=== PATIENT | female | born 1955 | race Two or more races ===

== ENCOUNTER 2024-07-12 20:47 | Emergency (ER) | payer MEDICARE, BC, SELFPAY ==
[2024-07-12 20:55] VITALS: BP 149/77; PULSE 72; RESP 17; TEMP 36.7; O2SAT 98
[2024-07-12] MEDS: DIPHTH,PERTUSS(ACELL),TET VAC 0.5 ML SYR- ADULT IMi (21:37)
--- NOTE | 2024-07-13 04:11 | EDNOTE_ITS ---
ED Wound/Laceration-RME/HPI General Chief Complaint: Wound/Laceration Stated Complaint: LAC TO HEAD Time Seen by Provider: 07/12/24 21:02 Arrival date/time: 07/12/24 20:47 69F with history of HLD presents to ED with head pain and scalp lac after something fell on her head. Patient has not had a tetanus shot in the past 5 years. Limitations: no limitations Related Data Home Medications ?Medication ?Instructions ?Recorded ?Confirmed No Known Home Medications 03/16/1802/19 Allergies Allergy/AdvReac Type Severity Reaction Status Date / Time No Known Allergies Allergy Verified 03/16/18 22:23 Review of Systems Review of Systems Systems Reviewed: All systems reviewed, normal except as documented Constitutional Constitutional: Reports system reviewed and no additional complaints, except as documented, Reports as per HPI, Denies fever(s) and Reports headache(s) (pain) ENT Ears, Nose, Mouth, and Throat: Denies disequilibrium and Reports headache(s) (pain) Cardiovascular Cardiovascular: Reports system reviewed and no additional complaints, except as documented, Denies chest pain and Denies dyspnea Respiratory Respiratory: Reports system reviewed and no additional complaints, except as documented, Denies cough and Denies dyspnea Gastrointestinal Gastrointestinal: Reports system reviewed and no additional complaints, except as documented, Denies abdominal pain, Denies nausea and Denies vomiting Integumentary/Breasts Skin/Breast: Reports as per HPI and Reports skin pain Neurologic Neurologic: Reports system reviewed and no additional complaints, except as documented, Denies confusion, Denies disequilibrium and Reports headache(s) (pain) Psychiatric Psychiatric: Denies confusion Past Medical History Past Medical History CARDIAC: Negative Congestive Heart Failure RESPIRATORY: Negative Chronic Obstructive Pulmonary Disease (COPD) GENITOURINARY: Negative Renal Disease ENDOCRINE: Negative Diabetes Mellitus Type 1 or Diabetes Mellitus Type 2 Social History SMOKING STATUS: Never smoker ED Exam General Limitations: Present no limitations General appearance: Present alert and in no apparent distress Expanded Head Exam Head exam physical: Present laceration (2 cm frontal scalp) Eye Eye exam: Present normal appearance, PERRL and EOMI ENT ENT exam: Present normal exam, normal oropharynx and mucous membranes moist Neck Neck exam: Present normal inspection, full ROM and trachea midline Chest Chest inspection: Present normal inspection and symmetric chest wall rise Respiratory Respiratory exam: Present normal lung sounds bilaterally Cardiovascular Cardiovascular exam: Present regular rate, normal rhythm and normal heart sounds Abdominal Exam Abdominal exam: Present soft and normal bowel sounds Extremities Exam Extremities exam: Present normal inspection and full ROM Back Exam Back exam: Present normal inspection and full ROM Neurological Exam Neurological exam: Present alert, oriented X3 and CN II-XII intact Psychiatric Psychiatric exam: Present normal affect and normal mood Skin Skin exam: Present warm, dry, intact and normal color Course Quality Measures none Orders Category Date Time Status Stapler to Beside ONCE Care 07/12/24 21:03 Completed Wound Care NOW Care 07/12/24 21:03 Completed TET,DIP/PERT AC (Adult)-Tdap [Boostrix Adult (Tdap) Med 07/12/24 21:03 Discontinued Vacc] 0.5 ml IMI .ONCE ONE Vital Signs Vital signs: Vital Signs Temperature 98.0 F 07/12/24 20:55 Pulse Rate 72 07/12/24 20:55 Respiratory Rate 17 07/12/24 20:55 Blood Pressure 149/77 H 07/12/24 20:55 Pulse Oximetry (%) 98 07/12/24 20:55 Oxygen Delivery Method Room Air 07/12/24 20:55 O2 at 98% on RA and WNLs Wound / Laceration MDM Narrative MDM Narrative:: 69F with history of HLD presents to ED with head pain and scalp lac after something fell on her head. Patient has not had a tetanus shot in the past 5 years. Physical exam reveals 2 cm lac on frontal scalp. Normal pupil response and EOM. No neck tenderness. ROM intact. Gait normal. Patient is afebrile, calm, and alert. Tdap given. Wound cleaned/irrigated and closed with 4 piter. Given student success counselor to have them removed in about 7-[address] as she denies AMS, dizziness, LOC, and vision changes. Patient data External records reviewed:: [facility] previous records Clinical information provided by:: patient Social determinants that could affect healthcare access:: none Patient has the following chronic illnesses:: HLD How is presenting disease/condition affected by chronic disease/condition?: uneffected by Evaluation data The following diagnostics were reviewed and interpreted by me:: other (specify) (none) Lab and/or radiology exams considered but not ordered:: not ordered Interpretation Summary: n/a Medications / Prescriptions Medications or Prescriptions considered but not ordered:: ordered Medication administrations:: Medication Administration History Discontinued Medications Diphtheria/Tetanus/Acell Pertussis (Diphth,Pertuss(Acell),Tet Vac 0.5 Ml Syr- Adult) 0.5 ml IMi .ONCE ONE Stop: 07/12/24 21:04 Last Admin: 07/12/24 21:37 Dose: 0.5 ml Documented By: TIM above Consultations Consultation(s) initiated? (list below): No Diagnosis Wound Differential Diagnosis: laceration, abrasion, avulsion of skin and other (CHI) Most likely diagnosis given after review of the tests above:: CHI and laceration Admission Indicated Admission indicated?: not indicated Admission Request Was there a request for admission?: No Disposition Plan Disposition Plan: Discharge Discharge Attestation Discharge Attestation: The patient and all family members were given an opportunity to ask questions and understood the discharge instructions. Discharge instructions specifically effects, indications for sooner follow up or return to the emergency department, and the expected course of current diagnosis. Patient condition: Stable Discharge Plan Plan Patient Disposition: HOME (Self Care) Disposition Comment: Stable Prescriptions/Referrals Prescriptions/Med Rec: No Action No Known Home Medications Referrals: Scarlet Maurice FNP [Primary Care Provider] - In 1 week Problem List Clinical Impression: Laceration, CHI (closed head injury) Patient/Caregiver Discharge Instructions Education Materials: ED Head Injury (Adult), ED Laceration Scalp Sutures or ... Additional Instructions: Please follow-up with PCP within 24-48 hours and return immediately if symptoms worsen. For the next 24-48 hours, watch for unexplained nausea/vomiting, confusion, lethargy, not acting like yourself, and seizures. Have piter removed in about 7-10 days. Print Language: B[place] Stand Alone Forms: Patient Portal Info Letter PAXTON/MILLY Supervising Physician JACY Supervising Physician: Dr. Medeiros
== END 2024-07-12 21:39 | disposition home or self-care (01) ==
PROVIDERS: Emergency Provider Emergency Medicine; PCP Nurse Practitioner Family
DX: S01.01XA Laceration without foreign body of scalp, initial encounter (principal); W20.8XXA Other cause of strike by thrown, projected or falling object, initial encounter; E78.5 Hyperlipidemia, unspecified; Z23 Encounter for immunization
CPT/HCPCS: 12001; 90471; 90715; 99283

== ENCOUNTER → 2024-07-24 | Outpatient (CLI) | payer BC, SELFPAY ==
[2024-07-24 08:38] LABS: Basophils # (Auto) 0.1 Thou/mm3 (0.0-0.2); Basophils % (Auto) 1 % (0-2.5); Eosinophils # (Auto) 0.2 Thou/mm3 (0.0-0.5); Eosinophils % (Auto) 5 % (0-10); Hematocrit 40.1 % (36.0-46.0); Hemoglobin 13.6 g/dL (12.0-16.0); Immature Granulocytes % (Auto) 0 % (0-0); Immature Granulocytes Auto 0.01 Thou/mm3 (0.00-0.00); Lymphocytes # (Auto) 1.7 Thou/mm3 (1.0-4.8); Lymphocytes % (Auto) 38 % (10-50); Mean Corpuscular HGB Conc 33.9 g/dl (31.0-37.0); Mean Corpuscular Hemoglobin 29.5 pg (25.0-35.0); Mean Corpuscular Volume 87 fL (80-100); Monocytes # (Auto) 0.3 Thou/mm3 (0.0-0.8); Monocytes % (Auto) 7 % (0-12); Neutrophils # (Auto) 2.1 Thou/mm3 (1.8-7.7); Neutrophils % (Auto) 48 % (37-80); Nucleated Red Blood Cell % 0 /100 WBC (0); Platelet Count 223 Thou/mm3 (140-440); RDW Standard Deviation 40.8 fL (36.4-46.3); Red Blood Count 4.61 Miln/mm3 (4.00-5.20); White Blood Count 4.4 Thou/mm3 (3.6-11.0)
[2024-07-24 08:46] LABS: Glucose Estimated Average 117 mg/dL (80-131); Hemoglobin A1C 5.7 % Hgb (4.8-6.0)
[2024-07-24 08:52] LABS: Alanine Aminotransferase 26 U/L (10-49); Albumin, Serum 4.4 gm/dL (3.4-4.8); Albumin/Globulin Ratio 1.9 (1.2-2.2); Alkaline Phosphatase 67 U/L (46-116); Anion Gap 6 (7-16); Aspartate Amino Transferase 20 U/L (0-34); BUN/Creatinine Ratio 17 Ratio (12-20); Bilirubin,Total 0.6 mg/dL (0.3-1.2); Blood Urea Nitrogen 12 mg/dL (9-23); Calcium 9.4 mg/dL (8.3-10.6); Calcium (Corrected) 9.4 mg/dL (8.5-10.1); Carbon Dioxide 28.1 mMol/L (20.0-31.0); Cardiac Risk Estimate 3.9 RATIO (3.7-5.6); Chloride 109 mMol/L (98-107); Cholesterol 240 mg/dL (132-200); Creatinine (Component) 0.7 mg/dL (0.6-1.3); Free T3 3.4 pg/mL (2.3-4.2); Globulin 2.3 gm/dL (2.3-3.5); Glucose 110 mg/dL (74-106); HDL Cholesterol 61 mg/dL (40-60); LDL Cholesterol,Calculated 157 mg/dL (0-130); Osmolality,Calculated 285 (275-295); Potassium 4.5 mMol/L (3.4-5.1); Sodium 143 mMol/L (136-145); Thyroid Stimulating Hormone 2.88 uIU/mL (0.55-4.78); Total Protein 6.7 gm/dL (5.7-8.2); Triglycerides 111 mg/dL (30-150); eGFR > 60 See Note
[2024-07-24 08:58] LABS: Folate 23.12 ng/mL (>5.38); Vitamin B12 1643 pg/mL (211-911); Vitamin D 25 Hydroxy Total 38.1 ng/mL (7.3-40.2)
[2024-07-24 09:07] LABS: T4 (Thyroxine) 5.9 mcg/dL (4.5-10.9)
== END | disposition home or self-care (01) ==
LOC: COPL 06:54
PROVIDERS: PCP Family Medicine; Referring Provider Nurse Practitioner; Visit Provider Nurse Practitioner
DX: R53.83 Other fatigue (principal); Z13.1 Encounter for screening for diabetes mellitus
CPT/HCPCS: 36415; 80053; 80061; 82306; 82607; 82746; 83036; 84436; 84443; 84481; 85025